=== PATIENT | male | born 1995 | race American Indian/Alaskan Native ===

== ENCOUNTER 2017-10-24 08:36 | Emergency (ER) | payer OTHER ==
[2017-10-24 09:09] VITALS: BP 130/69
--- NOTE | 2017-10-24 09:30 | XRay Report ---
RIGHT SHOULDER, 3 VIEWS: HISTORY: Fall on right shoulder. Normal bone mineralization. No acute osseous injury or joint pathology is detected. The soft tissues are unremarkable. IMPRESSION: Right shoulder within normal limits.
--- NOTE | 2017-10-24 10:47 | Emergency Department Report ---
Upper Extremity - HPI Chief Complaint: Shoulder Injury Stated Complaint: RIGHT SHOULDER PAIN Upper Extremity: Right Shoulder Occurred When: Today Mechanism: Fall Severity: moderate Symptoms: Yes Pain with Movement, Yes Bruising/Ecchymosis, No Deformity, No Limited Range of Movement, No Numbness, No Weakness, No Swelling, No Laceration or Abrasion Other History: 21-year-old male past medical history none presents with complaint of pain right anterior shoulder status post mechanical fall down stairs this morning. Patient denies any LOC any neck pain or any other injuries but does state that he fell forward when he tripped walking down stairs and hit his right shoulder on the way down. Patient is fully lucid awake alert and oriented 3 not in acute distress otherwise visibly ranging his right shoulder. States his pain is in his deltoid. Denies any paresthesias ED Review of Systems ROS: Stated complaint: RIGHT SHOULDER PAIN Other details as noted in HPI Constitutional: denies: chills, fever Eyes: denies: eye pain, eye discharge, vision change ENT: denies: ear pain, throat pain Respiratory: denies: cough, shortness of breath, wheezing Cardiovascular: denies: chest pain, palpitations Endocrine: no symptoms reported Gastrointestinal: denies: abdominal pain, nausea, diarrhea Genitourinary: denies: urgency, dysuria Musculoskeletal: as per HPI. denies: back pain, joint swelling, arthralgia Skin: denies: rash, lesions Neurological: denies: headache, weakness, paresthesias Psychiatric: denies: anxiety, depression Hematological/Lymphatic: denies: easy bleeding, easy bruising ED Past Medical Hx - Past Medical History Hx Asthma: Yes - Surgical History Past Surgical History?: No - Social History Smoking Status: Current Every Day Smoker Substance Use Type: None - Medications Home Medications: Home Medications Medication Instructions Recorded Confirmed Last Taken Type Ibuprofen [Motrin 600 MG tab] 600 mg PO Q8H PRN #21 tablet 11/12/13 Unknown Rx methOCARBAMOL [Robaxin TAB] 500 mg PO BID #15 tab 11/12/13 Unknown Rx Ibuprofen [Motrin] 800 mg PO Q8HR PRN #25 tablet 10/24/17 Unknown Rx Upper Extremity Exam - Exam General: Vital signs noted. No distress. Alert and acting appropriately. Head and Torso: No HEENT Abnormality, No Neck Tenderness (patient has no posterior neck tenderness on exam), No Chest/Lungs Abnormality, No Abdominal Tenderness, No Back Tenderness Shoulder Exam: Yes Shoulder Tenderness (right anterior deltoid tenderness right shoulder), Yes Normal Range of Motion in Shoulder (shoulder abduction and abduction and internal and external rotation clinically intact against resistance), No Clavicle Tenderness, No Shoulder Deformity, No AC Joint Tenderness Arm Exam: No Arm/Humerus Tenderness, No Arm Deformity Elbow: Yes Normal Range of Motion in Elbow, No Elbow Tenderness, No Elbow Deformity Forearm: No Forearm Tenderness, No Forearm Deformity, No Pain with Pronation, No Pain with Supination Wrist: Yes Normal ROM in Wrist, No Wrist Tenderness, No Wrist Deformity, No Snuffbox Tenderness, No Pain with Axial Thumb Compression Hand: Yes Normal ROM in Digit(s), No Hand Tenderness, No Hand Deformity, No Digit Tenderness, No Digit(s) Deformity, No Tendon Dysfunction CMS Exam: Yes Normal Distal Pulses, Yes Normal Capillary Refill (distal pulses sensation and capillary refill clinically intact), Yes Normal Distal Sensation, No Broken Skin Front/Back of Body, Lg (Color): 1 - Pain on palpation here ED Course Vital Signs 10/24/17 09:03 Temperature 98.7 F Pulse Rate 63 Respiratory 18 Rate Blood Pressure 130/69 Blood Pressure 130/69 [Left] O2 Sat by Pulse 99 Oximetry ED Medical Decision Making - Medical Decision Making A/P: Right shoulder contusion 1-x-ray shows no fracture, range of motion and neurovascular exam right upper extremity clinically intact 2-Motrin 800 when necessary 3-follow-up with orthopedics Critical care attestation.: If time is entered above; I have spent that time in minutes in the direct care of this critically ill patient, excluding procedure time. ED Disposition Clinical Impression: Contusion of right shoulder Qualifiers: Encounter type: initial encounter Qualified Code(s): S40.011A - Contusion of right shoulder, initial encounter Fall with no significant injury Qualifiers: Encounter type: initial encounter Qualified Code(s): W19.XXXA - Unspecified fall, initial encounter Disposition: TO HOME OR SELFCARE Is pt being admited?: No Does the pt Need Aspirin: No Condition: Stable Instructions: Shoulder Sprain (ED), RICE Therapy (ED) Prescriptions: Ibuprofen [Motrin] 800 mg PO Q8HR PRN #25 tablet PRN Reason: Pain Referrals: EUSEBIA BROWN MD [Staff Physician] - 3-5 Days [facility] [Provider Group] - 3-5 Days Forms: Work/School Release Form(ED) Time of Disposition: 10:46
== END 2017-10-24 10:56 | disposition home or self-care (01) ==
LOC: ED 08:36
DX: S40.011A Contusion of right shoulder, initial encounter (principal); J45.909 Unspecified asthma, uncomplicated; F17.200 Nicotine dependence, unspecified, uncomplicated; Z79.899 Other long term (current) drug therapy; Z88.0 Allergy status to penicillin; W17.89XA Other fall from one level to another, initial encounter; Y93.89 Activity, other specified; Y99.8 Other external cause status; Y92.89 Other specified places as the place of occurrence of the external cause
CPT/HCPCS: 99283